=== PATIENT | male | born 2000 | race Caucasian/White ===

== ENCOUNTER 2023-12-13 15:30 | Emergency (ER) | payer MEDICAID ==
[~2023-12-13] VITALS: Ht 185.4 cm; Wt 81.6 kg
[~2023-12-13 15:30] MED LIST: LEVO750T68 MT
[2023-12-13 15:43] VITALS: BP 150/84; PULSE 92; RESP 16; TEMP 98.7; O2SAT 99
== END 2023-12-13 18:44 | disposition left against medical advice (07) ==
LOC: ER 15:30
DX: H53.8 Other visual disturbances (principal); Z86.59 Personal history of other mental and behavioral disorders
CPT/HCPCS: 99281

== ENCOUNTER 2024-06-08 06:03 | Emergency (ER) | payer MEDICAID ==
[~2024-06-08] VITALS: Ht 182.9 cm; Wt 87.0 kg
[2024-06-08 06:23] VITALS: O2SAT 99
[2024-06-08] MEDS: ACETAMINOPHEN 325MG TABLET PO ONE (06:53)
[2024-06-08] MEDS: ONDANSETRON 4MG ODT PO ONE (06:53)
[2024-06-08 07:38] LABS: DIFFERENTIAL COMMENT 1; HEMATOCRIT. 44.6 % (42.0-52.0); HEMOGLOBIN. 14.8 g/dL (14.0-18.0); MEAN CORPUSCULAR HEMOGLOBIN 30.9 pg (28.0-32.0); MEAN CORPUSCULAR HGB CONC 33.2 g/dL (31.0-37.0); MEAN CORPUSCULAR VOLUME 93.2 fL (80.0-94.0); MEAN PLATELET VOLUME 7.9 fl (7.4-10.4); PLATELET 252 x1000/uL (130-400); RED BLOOD CELL COUNT 4.79 mill/uL (4.7-6.1); RED CELL DISTRIBUTION WIDTH 14.2 % (11.6-14.6); WHITE BLOOD COUNT 7.4 x1000/uL (4.5-11.0)
[2024-06-08 07:39] LABS: CHLORIDE 103 mEq/L (98-107); POTASSIUM 3.7 mEq/L (3.5-5.1); SODIUM 137 mEq/L (136-145)
[2024-06-08 07:40] LABS: CALCIUM 9.4 mg/dL (8.7-10.4); CARBON DIOXIDE 31 mEq/L (21-32)
[2024-06-08 07:45] LABS: CREATININE 0.9 mg/dL (0.6-1.3); GLUCOSE 97 mg/dL (70-105)
[2024-06-08 07:46] LABS: UREA NITROGEN BLOOD 9 mg/dL (9-23)
[2024-06-08 07:47] LABS: ALANINE AMINOTRANSFERASE 37 IU/L (10-49); ALBUMIN 4.6 g/dL (3.2-4.8); ASPARTATE AMINOTRANSFERASE 20 IU/L (<34)
[2024-06-08 07:48] LABS: BILIRUBIN TOTAL 0.6 mg/dL (0.1-1.0); PROTEIN TOTAL 7.4 g/dL (6.0-8.3)
[2024-06-08] MEDS ORDERED: ONDA-239 PO (08:14)
[2024-06-08 08:24] VITALS: BP 128/66; PULSE 83; RESP 17; TEMP 36.89184; O2SAT 99
[2024-06-08 09:05] LABS: PLATELET ESTIMATE NORMAL
== END 2024-06-08 08:19 | disposition home or self-care (01) ==
LOC: ER 06:03
DX: B34.9 Viral infection, unspecified (principal)
CPT/HCPCS: 99284; 71045; 80053; 83690; 85025; 36415; Q0162